=== PATIENT | female | born 1945 | race Caucasian/White ===

== ENCOUNTER 2016-07-16 07:14 | Day surgery (SDC) | payer MEDICARE, BC ==
[~2016-07-16 07:14] MED LIST: Propofol 200 MG/20 ML SDV ONE; fentaNYL 100 MCG/2 ML SDV ONE
[2016-07-16] MEDS ORDERED: Propofol 200 MG/20 ML SDV ONE (07:47)
[2016-07-16] MEDS ORDERED: Dextrose 5%-Lactated Ringers 1,000 ML IV SCH (08:00)
[2016-07-16 10:11] VITALS: BP 150/78
--- NOTE | 2016-07-18 13:46 | OR ---
DATE OF PROCEDURE: 07/16/2016 PREOPERATIVE DIAGNOSIS: Indications for colon screening. POSTOPERATIVE DIAGNOSIS: Uncomplicated left colonic diverticulosis. OPERATIVE PROCEDURE: Flexible colonoscopy. ANESTHESIA: IV sedation. INDICATION FOR PROCEDURE: A 70-year-old referred for screening colonoscopy. She does not have any history of bleeding or other GI symptoms, and there is no family history of colon neoplasia. Plan is to proceed with a flexible colonoscopy with biopsies and/or polypectomy as indicated. Potential risks including bleeding and perforation were discussed, and the patient wishes to proceed. DETAILS OF PROCEDURE: The patient was taken to the operating room and placed in a left lateral decubitus position. IV sedation was administered after which the initial digital rectal exam was performed and was unremarkable. Colonoscope was passed into the rectum with retroflexion revealing uncomplicated hemorrhoidal columns. The scope was eventually passed to the cecum. The prep was fairly good with there only being a small amount of liquid stool present. To that level, the patient was noted to have some uncomplicated left colonic diverticulosis. Otherwise, there are no areas of colitis, and no polyps or any other signs of neoplasia. The scope was then removed, and the above findings reconfirmed, and the procedure concluded. The patient was taken to the recovery room in satisfactory condition. Recommendation would be to repeat the colonoscopy in 10 years if at that time her health remains in reasonably good shape. Dejan Adame MD /[id number]
== END 2016-07-16 10:24 | disposition home or self-care (01) ==
LOC: JP.SDS 07:14
PROVIDERS: ATTEND Surgery
DX: Z12.11 Encounter for screening for malignant neoplasm of colon (principal); K57.30 Diverticulosis of large intestine without perforation or abscess without bleeding; J30.81 Allergic rhinitis due to animal (cat) (dog) hair and dander; J30.2 Other seasonal allergic rhinitis; Z91.011 Allergy to milk products; J45.909 Unspecified asthma, uncomplicated
CPT/HCPCS: G0121; J2704; J3010; J7042

== ENCOUNTER 2017-08-17 07:19 | Emergency (ER) | payer MEDICARE, BC ==
[2017-08-17 07:47] VITALS: BP 170/96
--- NOTE | 2017-08-17 08:13 | EDM.PDOC ---
ED HPI GENERAL MEDICAL PROBLEM - General Chief Complaint: Genitourinary Problem Stated Complaint: UTI? Time Seen by Provider: 08/17/17 08:13 Source of Information: Reports: Patient History Limitations: Reports: No Limitations ( urine from her) - History of Present Illness INITIAL COMMENTS - FREE TEXT/NARRATIVE: 71-year-old female with hematuria for the past 12 hours, this is usually the only symptoms she gets when she develops a UTI. This has happened to her in the past, she's had a complete workup with cystoscopy and scans and it's been negative. Overnight she developed frequent urination with hematuria, no dysuria. She has no fevers or chills or flank pain. No nausea or vomiting. Severity: Mild Associated Symptoms: Denies: Fever/Chills, Loss of Appetite, Nausea/Vomiting, Shortness of Breath - Related Data Allergies Allergy/AdvReac Type Severity Reaction Status Date / Time cat dander Allergy Wheezing Verified 08/17/17 07:55 milk Allergy Wheezing Verified 08/17/17 07:55 dust mites Allergy Wheezing Uncoded 08/17/17 07:55 Seasonal allergies Allergy Wheezing Uncoded 08/17/17 07:55 Home Meds: Home Meds Albuterol Sulfate [Proair Hfa] 1 - 2 puff IH Q4H PRN 06/17/16 [History] Cetirizine [ZyrTEC] 10 mg PO DAILY 06/17/16 [History] Hydrochlorothiazide 25 mg PO DAILY 06/17/16 [History] Multivitamin with Minerals [Multiple Vitamin] 1 tab PO DAILY 06/17/16 [History] Amitriptyline [Elavil] 25 mg PO BEDTIME 08/17/17 [History] Budesonide/Formoterol [Symbicort 160-4.5 MCG] 2 puff INH DAILY 08/17/17 [History ] Pravastatin Sodium [Pravastatin (Pravachol)] 40 mg PO BEDTIME 08/17/17 [History] Past Medical History HEENT History: Reports: None Cardiovascular History: Reports: High Cholesterol, Hypertension 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: Musculoskeletal History: Reports: Back Pain, Chronic, Other (See Below) Other Musculoskeletal History: spinal stenosis; bursitis and tendonitis - Infectious Disease History Infectious Disease History: Reports: Chicken Pox, Influenza, Measles - Past Surgical History HEENT Surgical History: Reports: Adenoidectomy, Tonsillectomy Respiratory Surgical History: Reports: None GI Surgical History: Reports: Colonoscopy Musculoskeletal Surgical History: Reports: Other (See Below) Social & Family History - Family History Family Medical History: Noncontributory - Tobacco Use Smoking Status *Q: Never Smoker - Caffeine Use Caffeine Use: Reports: Coffee - Recreational Drug Use Recreational Drug Use: No ED ROS GENERAL - Review of Systems Review Of Systems: See Below Constitutional: Denies: Fever, Chills, Malaise Respiratory: Denies: Shortness of Breath Cardiovascular: Denies: Chest Pain GI/Abdominal: Denies: Abdominal Pain, Nausea, Vomiting Neurological: Denies: Headache ED EXAM, RENAL/ - Physical Exam Exam: See Below Exam Limited By: No Limitations General Appearance: Alert, No Apparent Distress Respiratory/Chest: No Respiratory Distress GI/Abdominal: Non-Tender Back Exam: No: CVA Tenderness (R), CVA Tenderness (L) Neurological: Alert, Oriented Skin Exam: Warm, Dry Course - Vital Signs Last Recorded V/S: Last Vital Signs Temp 98.5 F 08/17/17 07:54 Pulse 96 08/17/17 07:54 Resp 16 08/17/17 07:54 BP 170/96 H 08/17/17 07:54 Pulse Ox 97 08/17/17 07:54 - Orders/Labs/Meds Orders: Active Orders 24 hr Category Date Time Status CULTURE URINE [RM] Stat Lab 08/17/17 08:30 Received UA W/MICROSCOPIC [URIN] Urgent Lab 08/17/17 08:14 Ordered Labs: Laboratory Tests 08/17/17 Range/Units 08:14 Urine Color Red Urine Appearance Cloudy Urine pH 7.0 (4.5-8.0) Ur Specific [place] 1.010 (1.008-1.030) Urine Protein 30 H (NEGATIVE) mg/dL Urine Glucose (UA) Normal (NEGATIVE) mg/dL Urine Ketones Negative (NEGATIVE) mg/dL Urine Occult Blood Large (NEGATIVE) Urine Nitrite Negative (NEGATIVE) Urine Bilirubin Negative (NEGATIVE) Urine Urobilinogen Normal (NORMAL) mg/dL Ur Leukocyte Esterase Large (NEGATIVE) Urine RBC Packed H (0-5) Urine WBC Semi-packed H (0-5) Ur Epithelial Cells Few Amorphous Sediment Not seen Urine Bacteria Many Urine Mucus Not seen - Re-Assessments/Exams Free Text/Narrative Re-Assessment/Exam: 08/17/17 08:21 a UA was obtained. 08/17/17 08:41 UA was positive with bacteria, WBCs and RBCs. Patient will be placed on Cipro 500 mg twice daily for 5 days with a urine culture pending. She'll return if not improving after 2-3 days or sooner if worsening. Departure - Departure Time of Disposition: 08:52 Disposition: Home, Self-Care 01 Condition: Good Clinical Impression: UTI, Urinary tract infectious disease - Discharge Information Instructions: Urinary Tract Infection, Adult Referrals: Blanco Jackson MD [Primary Care Provider] - Forms: ED Department Discharge Care Plan Goals: Take antibiotic twice daily for 5 days and recheck in 2-3 days if not improving satisfactorily, returning sooner if worsening such as fever or back pain. - My Orders Last 24 Hours: My Active Orders 08/17/17 08:14 UA W/MICROSCOPIC [URIN] Urgent 08/17/17 08:30 CULTURE URINE [RM] Stat - Assessment/Plan Last 24 Hours: My Active Orders 08/17/17 08:14 UA W/MICROSCOPIC [URIN] Urgent 08/17/17 08:30 CULTURE URINE [RM] Stat
== END 2017-08-17 08:51 | disposition home or self-care (01) ==
LOC: JP.ED 07:19
DX: N39.0 Urinary tract infection, site not specified (principal); R31.9 Hematuria, unspecified; I10 Essential (primary) hypertension; E78.00 Pure hypercholesterolemia, unspecified; Z91.011 Allergy to milk products; Z91.09 Other allergy status, other than to drugs and biological substances; Z79.899 Other long term (current) drug therapy; J45.909 Unspecified asthma, uncomplicated
CPT/HCPCS: 81001; 87086; 87088; 87186; 99284

== ENCOUNTER 2020-12-05 16:02 | Emergency (ER) | payer MEDICARE ==
[2020-12-05] MEDS ORDERED: Aspirin 81 MG Tab.Chew PO ONE (17:29)
--- NOTE | 2020-12-05 17:32 | EDM.PDOC ---
ED HPI GENERAL MEDICAL PROBLEM - General Chief Complaint: Cardiovascular Problem Stated Complaint: CHEST PRESSURE LIGHT HEADED Time Seen by Provider: 12/05/20 17:24 Source of Information: Reports: Patient, Family, RN Notes Reviewed History Limitations: Reports: No Limitations - History of Present Illness INITIAL COMMENTS - FREE TEXT/NARRATIVE: 75-year-old female presents emergency department day complaint of chest pressure, she stated started about 4 hours prior initially some epigastric pain then went into her chest had some radiations up into her jaw and left shoulder no nausea no vomiting no diaphoresis no shortness of breath. She has no heart history herself family history Sister myocardial infarction age 75. Remote smoking history as a teenager - Related Data Allergies Allergy/AdvReac Type Severity Reaction Status Date / Time cat dander Allergy Wheezing Verified 12/05/20 17:13 milk Allergy Wheezing Verified 12/05/20 17:13 dust mites Allergy Wheezing Uncoded 12/05/20 17:13 Seasonal allergies Allergy Wheezing Uncoded 12/05/20 17:13 Home Meds: Home Meds Albuterol Sulfate [Proair Hfa] 1 - 2 puff IH Q4H PRN 06/17/16 [History] Cetirizine [ZyrTEC] 10 mg PO DAILY 06/17/16 [History] Hydrochlorothiazide 25 mg PO DAILY 06/17/16 [History] Multivitamin with Minerals [Multiple Vitamin] 1 tab PO DAILY 06/17/16 [History] Budesonide/Formoterol [Symbicort 160-4.5 MCG] 2 puff INH DAILY 08/17/17 [History] Pravastatin Sodium [Pravastatin (Pravachol)] 40 mg PO BEDTIME 08/17/17 [History] Calcium Carbonate/Vitamin D3 [Calcium 250+D] 1 each PO DAILY 12/05/20 [History] Gabapentin [Neurontin] 600 mg PO BID 12/05/20 [History] Past Medical History Cardiovascular History: Reports: High Cholesterol, Hypertension 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: Reports: 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: Musculoskeletal History: Reports: Back Pain, Chronic, Other (See Below) Other Musculoskeletal History: spinal stenosis; bursitis and tendonitis - Infectious Disease History Infectious Disease History: Reports: Chicken Pox, Influenza, Measles - Past Surgical History HEENT Surgical History: Reports: Adenoidectomy, Tonsillectomy GI Surgical History: Reports: Colonoscopy Musculoskeletal Surgical History: Reports: Other (See Below) Other Musculoskeletal Surgeries/Procedures:: ACL repair to right knee Social & Family History - Family History Family Medical History: No Pertinent Family History - Tobacco Use Tobacco Use Status *Q: Never Tobacco User Second Hand Smoke Exposure: No - Caffeine Use Caffeine Use: Reports: Coffee - Recreational Drug Use Recreational Drug Use: No ED ROS GENERAL - Review of Systems Review Of Systems: See Below Constitutional: Denies: Diaphoresis HEENT: Reports: No Symptoms Respiratory: Reports: No Symptoms Cardiovascular: Reports: Chest Pain GI/Abdominal: Reports: No Symptoms ED EXAM, GENERAL - Physical Exam Exam: See Below Exam Limited By: No Limitations General Appearance: Alert, WD/WN, No Apparent Distress Respiratory/Chest: No Respiratory Distress, Lungs Clear, Normal Breath Sounds, No Accessory Muscle Use, Chest Non-Tender Cardiovascular: Regular Rate, Rhythm, No Murmur GI/Abdominal: Soft, Non-Tender Extremities: No Pedal Edema #1 Interpretation EKG Date: 12/05/20 Time: 17:33 Rhythm: NSR Tropic: Normal P-Wave: Present QRS: Normal ST-T: Normal QT: Normal Comparison: NA - No Prior EKG Course - Vital Signs Last Recorded V/S: Last Vital Signs Temp 98.0 F 12/05/20 17:16 Pulse 84 12/05/20 17:46 Resp 16 12/05/20 17:16 BP 150/93 H 12/05/20 17:46 Pulse Ox 91 L 12/05/20 17:16 - Orders/Labs/Meds Orders: Active Orders 24 hr Category Date Time Status Cardiac Monitoring [RC] .As Directed Care 12/05/20 17:29 Active Chest 2V [CR] Stat Exams 12/05/20 17:29 Taken EKG 12 Lead [EK] Stat Ther 12/05/20 17:29 Ordered Labs: Laboratory Tests 12/05/20 12/05/20 Range/Units 17:40 17:40 WBC 8.7 (4.5-11.0) K/uL RBC 4.30 (3.30-5.50) M/uL Hgb 13.2 (12.0-15.0) g/dL Hct 40.4 (36.0-48.0) % MCV 94 (80-98) fL MCH 31 (27-31) pg MCHC 33 (32-36) % Plt Count 244 (150-400) K/uL Neut % (Auto) 62.9 (36-66) % Lymph % (Auto) 25.4 (24-44) % [place] % (Auto) 9.7 H (2-6) % Eos % (Auto) 1.5 L (2-4) % Baso % (Auto) 0.5 (0-1) % Sodium 140 (140-148) mmol/L Potassium 3.6 (3.6-5.2) mmol/L Chloride 102 (100-108) mmol/L Carbon Dioxide 29 (21-32) mmol/L Anion Gap 9.1 (5.0-14.0) mmol/L BUN 26 H (7-18) mg/dL Creatinine 1.0 (0.6-1.0) mg/dL Est Cr Clr Drug Dosing 45.50 mL/min Estimated GFR (MDRD) 54 L (>60) Glucose 87 (74-106) mg/dL Calcium 9.5 (8.5-10.1) mg/dL Total Bilirubin 0.8 (0.2-1.0) mg/dL AST 13 L (15-37) U/L ALT 23 (12-78) U/L Alkaline Phosphatase 51 (46-116) U/L Troponin I < 0.017 (0.000-0.056) ng/mL Total Protein 6.5 (6.4-8.2) g/dL Albumin 3.4 (3.4-5.0) g/dL Globulin 3.1 (2.3-3.5) g/dL Albumin/Globulin Ratio 1.1 L (1.2-2.2) Lipase 83 (73-393) U/L Meds: Medications Discontinued Medications Generic Name Dose Route Start Last Admin Trade Name Freq PRN Reason Stop Dose Admin Aspirin 324 mg 12/05/20 17:29 12/05/20 18:12 Aspirin 81 Mg Tab.Chew PO 12/05/20 17:30 324 mg ONETIME ONE Administration Departure - Departure Time of Disposition: 18:16 Disposition: Home, Self-Care 01 Condition: Fair Clinical Impression: Chest pain Qualifiers: Chest pain type: unspecified Qualified Code(s): R07.9 - Chest pain, unspecified Instructions: Nonspecific Chest Pain, Adult, [id number] Referrals: Blanco Jackson MD [Primary Care Provider] - Forms: ED Department Discharge Additional Instructions: Continue with your regular medications, the outpatient surgery center will call you for the time for your stress test, however plan to follow-up with Dr. Alcaraz for further evaluation and treatment Sepsis Event Note (ED) - Evaluation Sepsis Screening Result: No Definite Risk - Focused Exam Vital Signs: Vital Signs Temp Pulse Resp BP Pulse Ox 12/05/20 17:46 84 150/93 H 12/05/20 17:16 98.0 F 99 16 166/86 H 91 L 12/05/20 16:55 87 12 135/85 93 L 12/05/20 16:35 98.0 F 99 16 166/86 H 91 L - My Orders Last 24 Hours: My Active Orders 12/05/20 17:29 Cardiac Monitoring [RC] .As Directed Chest 2V [CR] Stat EKG 12 Lead [EK] Stat - Assessment/Plan Last 24 Hours: My Active Orders 12/05/20 17:29 Cardiac Monitoring [RC] .As Directed Chest 2V [CR] Stat EKG 12 Lead [EK] Stat Plan: Assessment Acuity = acute Site and laterality = chest pain Etiology = unclear etiology Manifestations = none Location of injury = Home Lab values = CBC, CMP, troponin all within normal limits EKG demonstrates a sinus rhythm with no ST elevations, chest x-ray shows no acute process Plan I did review lab work EKG chest x-ray results with her she remained chest pain- free while in the emergency department I did set her up for an outpatient stress test results to go to her primary care This note was dictated using [employer] voice recognition software please call with any questions on syntax or grammar.
[2020-12-05 17:47] VITALS: BP 150/93; PULSE 84
--- NOTE | 2020-12-06 10:07 | CRLCR ---
Final Report: INDICATION: Chest pain. TECHNIQUE: Two view chest. FINDINGS: The lungs are clear. The heart, mediastinum and pulmonary vessels are of normal size. There is no evidence of pleural disease. IMPRESSION: Negative chest. Dictated by Leonardo Love MD @ 12/06/2020 9:52:33 AM (Electronic Signature) [email or web address]
== END 2020-12-05 19:05 | disposition home or self-care (01) ==
LOC: JP.ED 16:02
DX: R07.89 Other chest pain (principal); E78.00 Pure hypercholesterolemia, unspecified; I10 Essential (primary) hypertension; J45.909 Unspecified asthma, uncomplicated; Z91.048 Other nonmedicinal substance allergy status; Z91.011 Allergy to milk products; Z79.899 Other long term (current) drug therapy
CPT/HCPCS: 36415; 71046; 80053; 83690; 84484; 85025; 93005; 99285; A9270

== ENCOUNTER 2020-12-22 19:03 | Emergency (ER) | payer MEDICARE ==
[2020-12-22] MEDS ORDERED: Diphtheria/Tetanus Toxoids,Adult (Td) 0.5 ML SDV IM ONE (19:30)
[2020-12-22 19:43] VITALS: BP 175/90; PULSE 69
--- NOTE | 2020-12-22 19:59 | EDM.PDOC ---
ED HPI GENERAL MEDICAL PROBLEM - General Chief Complaint: Laceration Stated Complaint: cut tip of finger, L HAND Time Seen by Provider: 12/22/20 19:54 Source of Information: Reports: Patient History Limitations: Reports: No Limitations - History of Present Illness INITIAL COMMENTS - FREE TEXT/NARRATIVE: Cut finger with kitchen knife tonight. Last tetanus in 2013. No other injuries. Left Finger-Index Pain Score (Numeric/FACES): 2 - Related Data Allergies Allergy/AdvReac Type Severity Reaction Status Date / Time cat dander Allergy Wheezing Verified 12/22/20 19:15 milk Allergy Wheezing Verified 12/22/20 19:15 dust mites Allergy Wheezing Uncoded 12/22/20 19:15 Seasonal allergies Allergy Wheezing Uncoded 12/22/20 19:15 Home Meds: Home Meds Albuterol Sulfate [Proair Hfa] 1 - 2 puff IH Q4H PRN 06/17/16 [History] Cetirizine [ZyrTEC] 10 mg PO DAILY 06/17/16 [History] Hydrochlorothiazide 25 mg PO DAILY 06/17/16 [History] Multivitamin with Minerals [Multiple Vitamin] 1 tab PO DAILY 06/17/16 [History] Budesonide/Formoterol [Symbicort 160-4.5 MCG] 2 puff INH DAILY 08/17/17 [History] Pravastatin Sodium [Pravastatin (Pravachol)] 40 mg PO BEDTIME 08/17/17 [History] Calcium Carbonate/Vitamin D3 [Calcium 250+D] 1 each PO DAILY 12/05/20 [History] Gabapentin [Neurontin] 600 mg PO BID 12/05/20 [History] Carboxymethylcellulos/Glycerin [Refresh Relieva 0.5-0.9% Drop] 1 drop EYEBOTH ASDIRECTED 12/22/20 [History] Metoprolol Succinate [Toprol XL] 25 mg PO DAILY 12/22/20 [History] Nitroglycerin [Nitrostat] 0.4 mg SL ASDIRECTED PRN 12/22/20 [History] Past Medical History Cardiovascular History: Reports: High Cholesterol, Hypertension 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: Musculoskeletal History: Reports: Back Pain, Chronic, Other (See Below) Other Musculoskeletal History: spinal stenosis; bursitis and tendonitis - Infectious Disease History Infectious Disease History: Reports: Chicken Pox, Influenza, Measles - Past Surgical History HEENT Surgical History: Reports: Adenoidectomy, Tonsillectomy Cardiovascular Surgical History: Reports: None Respiratory Surgical History: Reports: None GI Surgical History: Reports: Colonoscopy Musculoskeletal Surgical History: Reports: Other (See Below) Other Musculoskeletal Surgeries/Procedures:: ACL repair to right knee Social & Family History - Family History Family Medical History: No Pertinent Family History - Tobacco Use Tobacco Use Status *Q: Never Tobacco User - Caffeine Use Caffeine Use: Reports: Coffee - Recreational Drug Use Recreational Drug Use: No ED ROS GENERAL - Review of Systems Review Of Systems: See Below Constitutional: Reports: No Symptoms Musculoskeletal: Reports: No Symptoms Skin: Reports: Wound Neurological: Reports: No Symptoms ED EXAM, SKIN/RASH Exam: See Below Exam Limited By: No Limitations General Appearance: Alert, WD/WN, No Apparent Distress Cardiovascular: Normal Peripheral Pulses Extremities: Normal Inspection, Normal Range of Motion Skin: Warm, Dry, Wound/Incision (2 cm superficial avulsion laceration left index finger. ) ED SKIN PROCEDURES - Laceration/Wound Repair Left Distal Digit - 2nd (Index) Distal NVT: Neuro & Vascular Intact Anesthetic Type: Digital Local Anesthesia - Lidocaine (Xylocaine): 1% Plain Local Anesthetic Volume: 3cc Skin Prep: Chlorhexidine (Hibiciens) Exploration/Debridement/Repair: Wound Explored Closed with: Sutures Lac/Wound length In cm: 2 Suture Size: 4-0 # of Sutures: 2 Suture Type: Nylon Sterile Dressing Applied: Nurse Tetanus Status Addressed: Yes Complications: No Course - Vital Signs Text/Narrative:: The patient was evaluated. BP initially elevated without symptoms. Left index finger wound was inspected. Treatment discussed. Wound repaired and dressing applied. Tetanus booster given. S/R with pcp in 7 days. Keep wound clean and covered. Last Recorded V/S: Last Vital Signs Temp 36.6 C 12/22/20 19:14 Pulse 69 12/22/20 19:14 Resp 18 12/22/20 19:14 BP 175/90 H 12/22/20 19:14 Pulse Ox 94 L 12/22/20 19:14 - Orders/Labs/Meds Meds: Medications Discontinued Medications Generic Name Dose Route Start Last Admin Trade Name Freq PRN Reason Stop Dose Admin Lidocaine HCl 5 ml 12/22/20 19:29 Lidocaine 1% 5 Ml Sdv INJECT 12/22/20 19:30 ONETIME ONE Tetanus/Diphtheria Toxoids 0.5 ml 12/22/20 19:30 Diphtheria/Tetanus Toxoids,Adult (Td) 0.5 Ml Sdv IM 12/22/20 19:31 .ONCE ONE Departure - Departure Time of Disposition: 19:59 Disposition: Home, Self-Care 01 Condition: Good Clinical Impression: Laceration of left index finger - Discharge Information Instructions: Laceration Care, Adult Referrals: Blanco Jackson MD [Primary Care Provider] - Sepsis Event Note (ED) - Evaluation Sepsis Screening Result: No Definite Risk - Focused Exam Vital Signs: Vital Signs Temp Pulse Resp BP Pulse Ox 12/22/20 19:14 36.6 C 69 18 175/90 H 94 L
== END 2020-12-22 20:24 | disposition home or self-care (01) ==
LOC: JP.ED 19:03
DX: S61.211A Laceration without foreign body of left index finger without damage to nail, initial encounter (principal); E78.00 Pure hypercholesterolemia, unspecified; I10 Essential (primary) hypertension; Z91.011 Allergy to milk products; Z91.09 Other allergy status, other than to drugs and biological substances; Z23 Encounter for immunization; W26.0XXA Contact with knife, initial encounter; Y92.000 Kitchen of unspecified non-institutional (private) residence as the place of occurrence of the external cause
CPT/HCPCS: 12001; 90471; 90714; 99282-25